=== PATIENT | male | born 1955 | race Caucasian/White ===

== ENCOUNTER 2018-03-27 16:24 | Emergency (ER) | payer BC ==
[~2018-03-27] VITALS: Ht 180.3 cm; Wt 79.8 kg
[2018-03-27 16:40] VITALS: Ht 180.3 cm; Wt 79.8 kg
[2018-03-27 17:50] LABS: BASOPHIL % 0.3 % (0-2); PLATELET COUNT 130 x10^3mcL (130-400); RED CELL DISTRIBUTION WIDTH 13.8 % (11.5-14.5)
[2018-03-27 18:01] LABS: CALCIUM 9.1 mg/dL (8.5-10.1); CARBON DIOXIDE 30.3 mmol/L (21-32); CHLORIDE SERUM 106 mmol/L (98-107); CREATININE SERUM 1.1 mg/dL (0.7-1.3); GFR1 > 60 mL/min; GLUCOSE SERUM 111 mg/dL (74-106); POTASSIUM SERUM 4.2 mmol/L (3.5-5.1); SODIUM SERUM 146 mmol/L (136-145)
[2018-03-27 18:06] LABS: ALBUMIN 3.7 g/dL (3.4-5.0); ALKALINE PHOSPHATASE 101 U/L (46-116); ALT/SGPT 59 U/L (16-63); AST/SGOT 31 U/L (15-37); BILIRUBIN TOTAL 0.66 mg/dL (0.20-1.00); TOTAL PROTEIN, SERUM 7.5 g/dL (6.4-8.2)
[2018-03-27 20:05] VITALS: BP 168/113
== END 2018-03-27 20:33 | disposition home or self-care (01) ==
LOC: ED 16:24
PROVIDERS: Emergency Medicine
DX: S09.90XA Unspecified injury of head, initial encounter (principal); W18.09XA Striking against other object with subsequent fall, initial encounter; Y93.89 Activity, other specified; Y92.89 Other specified places as the place of occurrence of the external cause; Y99.8 Other external cause status
CPT/HCPCS: 36415; J8597

== ENCOUNTER 2020-06-02 01:53 | Inpatient (IN) | payer BC ==
[~2020-06-02] VITALS: Ht 180.3 cm; Wt 76.3 kg
[2020-06-02 02:07] VITALS: Ht 180.3 cm; Wt 76.3 kg
[2020-06-02 06:04] LABS: BASOPHIL % 0.4 % (0-2)
[2020-06-02 06:05] LABS: PLATELET COUNT 120 x10^3mcL (130-400)
[2020-06-02 06:41] LABS: CALCIUM 9.1 mg/dL (8.5-10.1); CARBON DIOXIDE 27.8 mmol/L (21-32); CHLORIDE SERUM 101 mmol/L (98-107); GFR1 > 60 mL/min; GLUCOSE SERUM 140 mg/dL (74-106); POTASSIUM SERUM 4.7 mmol/L (3.5-5.1); SODIUM SERUM 136 mmol/L (136-145)
[2020-06-02 06:46] LABS: ALBUMIN 3.8 g/dL (3.4-5.0); ALKALINE PHOSPHATASE 109 U/L (46-116); ALT/SGPT 71 U/L (16-63); AST/SGOT 32 U/L (15-37); BILIRUBIN TOTAL 1.54 mg/dL (0.20-1.00); TOTAL PROTEIN, SERUM 7.5 g/dL (6.4-8.2)
--- NOTE | 2020-06-02 07:11 | NUR ---
PATIENT SEEN WITH COMPLAINT OF ADOMINAL PAIN. SEEN BY MD, HAD XRAY DONE. PATIENT IS SLEEPING AND SNORING AT THIS TIME
--- NOTE | 2020-06-02 07:12 | NUR ---
INSTRUCTED TO GIVE URINE SPECIMEN.
--- NOTE | 2020-06-02 08:20 | NUR ---
STARTED ON IV ATB
--- NOTE | 2020-06-02 09:45 | NUR ---
PT ADMIT TO [facility] ROOM 235A GAVE REPORT TO BUTCH
--- NOTE | 2020-06-02 09:55 | NUR ---
RECEIVED REPORT FROM ER NURSE MILAD. PATIENT ARRIVED TO ROOM VIA WHEELCHAIR, ACCOMPANIED BY ER NURSE. AAO TIMES 4, SPEECH CLEAR. DENIES PAIN AND DISCOMFORT AT THIS TIME. RESPIRATIONS EVEN AND UL ON RA. MED-SURG. DENIES CP/CARDIAC DISCOMFORT. BS ACTIVE x4. ABD SOFT AND ROUND, NON-TENDER. DENIES N/V/D. VOIDS FREELY. AMBULATORY WITHOUT ASSISTANCE. SKIN CDI, SOME DISCOLORATION NOTED TO BLE. IV SITE TO LAC, PATENT AND INTACT, D5NS INFUSING AT 100ML/HR. BED IN LOWEST POSITION, CALL LIGHT IN REACH, SAFETY MEASURES IN PLACE.
[2020-06-02 11:37] VITALS: BP 128/82
--- NOTE | 2020-06-02 14:30 | NUR ---
PATIENT RESTING IN BED, RESPIRATIONS EVEN AND UL ON RA. DENIES PAIN AT THIS TIME. BED IN LOWEST POSITION, SAFETY MEASURES IN PLACE. WILL CONT TO MONITOR.
[2020-06-02 15:48] LABS: UA SPECIFIC GRAVITY 1.025 (1.005-1.035); microscopic required? YES; urine erythrocyte NEGATIVE (NEGATIVE)
[2020-06-02 16:45] VITALS: BP 136/97
--- NOTE | 2020-06-02 18:01 | NUR ---
PATIENT TAKEN DOWN TO OR FOR SCHEDULED APPENDECTOMY, ACCOMPANIED BY LOG SKIDDER MONIQUE, FULL REPORT GIVEN. CONSENT OBTAINED, CHECKLIST COMPLETED.
--- NOTE | 2020-06-02 18:55 | NUR ---
PATIENT STILL IN OR. NO ACUTE CHANGES THROUGHOUT SHIFT. WILL ENDORSE TO NIGHT NURSE.
--- NOTE | 2020-06-02 21:18 | NUR ---
PT ARRIVED FROM OR VIA [facility]. WILL ASSESS PT. VITAL SIGNS STABLE, NO COMPLAINTS OF PAIN.
[2020-06-02 21:20] VITALS: BP 112/88
--- NOTE | 2020-06-02 21:30 | NUR ---
PT ARRIVED FROM OR, AA/O X 4, ABLE TO MAKE NEEDS KNOWN, CLEAR SPEECH, DENIES HEADACHE/DENIES DIZZINESS. MED SURG PT, DENIES CHEST PAIN/ CHEST PRESSURE. PULSES PALPABELE, NO EDEMA. LUNG SOUNDS CTA, DENIES SOB, RESPIRATIONS E/U ON RA. ACTIVE BS X 4 QUADS, ABD SOFT AND ROUND, NON TENDER AT THIS TIME. 3 INCISIONS TO ABD, NO BLEEDING, NO REDNESS. VOIDS URING URINAL. AMBULATORY. SOME DISCOLORATION TO BLE. DENIES PAIN. IV TO LAC INTACT, NO ERYTHEMA/ NO INFILTRATION. DENIES PAIN, ALL NEEDS MET, CALL BUTTON WITHIN REACH, WILL CONTINUE TO MONITOR.
--- NOTE | 2020-06-03 00:15 | NUR ---
PT RESTING IN BED WATCHING TELEVISION. IV FLUIDS INFUSING WELL AT 100 CC/HR. NO ACUTE DISTRESS AT THIS TIME, PT DENIES PAIN AT THIS TIME. PT PLEASANT AND IN GOOD SPIRITS, STATING HE "FEELS GREAT". CALL BUTTON WITHIN REACH, WILL CONTINUE TO MONITOR.
--- NOTE | 2020-06-03 04:50 | NUR ---
PT COMPLAINED OF ACID REFLUX LIKE SYMPTOM. IVP ZOFRAN GIVEN PER ORDER. WILL CONTINUE TO MONITOR.
[2020-06-03 05:44] VITALS: BP 128/99
--- NOTE | 2020-06-03 06:03 | NUR ---
PT SLEPT IN INTERVALS THROUGHTOUT THE NIGHT, BUT EASILY AROUSABLE, RESPIRATIONS E/U ON RA. DENIES SOB. DENIES PAIN TO ABD. STATED IVP ZOFRAN EFFECTIVE. IV FLUIDS INFUSING WELL. PT ASSISTED AND AMBULATED TO BATHROOM, STEADY EVEN GAIN. NO ACUTE CHANGES OVERNIGHT. ALL NEEDS MET, CALL LIGHT WITHIN REACH, WILL ENDORSE CARE TO AM NURSE.
[2020-06-03 07:59] LABS: CALCIUM 9.2 mg/dL (8.5-10.1); CHLORIDE SERUM 101 mmol/L (98-107); CREATININE SERUM 1.2 mg/dL (0.7-1.3); GFR1 > 60 mL/min; GLUCOSE SERUM 188 mg/dL (74-106); POTASSIUM SERUM 3.6 mmol/L (3.5-5.1); SODIUM SERUM 139 mmol/L (136-145)
[2020-06-03 08:01] VITALS: BP 146/98
[2020-06-03 10:11] LABS: RED CELL DISTRIBUTION WIDTH 14.4 % (11.5-14.5)
[2020-06-03 11:00] LABS: PLATELET COUNT 128 x10^3mcL (130-400)
[2020-06-03 11:01] LABS: BASOPHIL % 0 % (0-2)
[2020-06-03] MEDS ORDERED: AUG500 PO (11:16)
[2020-06-03 12:54] VITALS: BP 110/87
[2020-06-03 13:03] VITALS: BP 110/87
== END 2020-06-03 14:48 | disposition home or self-care (01) | DRG 340 ==
LOC: ED 01:53 → MU 07:50
PROVIDERS: Surgery; ADMIT Internal Medicine; ATTEND Internal Medicine
PROC: 0DTJ4ZZ Resection of Appendix, Percutaneous Endoscopic Approach (ICD-10-PCS; principal; 2020-06-02 19:00)
DX: K35.33 Acute appendicitis with perforation, localized peritonitis, and gangrene, with abscess (principal); I10 Essential (primary) hypertension; Z20.828 Contact with and (suspected) exposure to other viral communicable diseases
CPT/HCPCS: C9113; G0378; J0131; J0694; J1885; J2175; J2250; J2405; J2543; J3010; J3490; J7042